=== PATIENT | female | born 1950 | race African-American/Black ===

== ENCOUNTER 2025-07-24 17:12 | Emergency (ER) | payer MEDICARE ==
[~2025-07-24 17:12] MED LIST: Iopamidol-370 76% 500 ML MDV (1 ML CHARGE) ONE
[2025-07-24 18:44] LABS: Actual Bicarbonate (HCO3v) 23.3 mEq/L (22-28); Base Excess -2.0 mEq/L (-2.0 to +3.0); Calcium, Ionized (venous) 1.12 mmol/L (1.16-1.32); Chloride (VBG) 104 mmol/L (98-106); Hematocrit-VBG 44 % (42.0-52.0); Hemoglobin (Hb) 14.9 g/dL (12.6-17.4); Potassium (VBG) 4.10 mmol/L (3.70-5.30); Sodium 142 mmol/L (133-146)
[2025-07-24 18:49] LABS: #Basophils 0.04 10x3/uL (0.0-0.2); #Eosinophils 0.06 10x3/uL (0.0-0.7); #Monocytes 0.33 10x3/uL (0.11-0.59); #Neutrophils 3.45 10x3/uL (1.40-6.50); %Basophils 0.8 % (0.0-1.0); %Eosinophils 1.2 % (0.0-10.0); %Lymphocytes 19.4 % (21.0-51.0); %Monocytes 6.8 % (0.0-10.0); %Neutrophils 71.4 % (42.0-75.0); Hematocrit 42.3 % (42.0-52.0); Hemoglobin 13.5 g/dL (14.0-18.0); Mean Corpuscular Hemoglobin 30.3 pg (27.0-31.0); Mean Corpuscular Volume 94.8 fL (78.0-98.0); Platelet Count 257 10x3/uL (130-400); Red Blood Cell (RBC) Count 4.46 mill/uL (4.70-6.10); White Blood Cell (WBC) Count 4.84 10x3/uL (4.8-10.8)
[2025-07-24 19:07] LABS: ALT (SGPT) 10 U/L (Less than 45); AST (SGOT) 22 U/L (11-34); Albumin 4.0 g/dL (3.1-4.5); Alkaline Phosphatase 71 U/L (40-110); Anion Gap 18 mmol/L (10-20); BUN (Urea Nitrogen) 18 mg/dL (8.4-25.7); Bilirubin, Total 0.3 mg/dL (0.3-1.2); Calc. Creatinine Clearance 0 mL/min (70-130); Calcium 9.1 mg/dL (7.8-10.44); Carbon Dioxide 21 mmol/L (23-31); Chloride 105 mmol/L (98-107); Globulin 3.9 g/dL (2.4-3.5); Glucose 112 mg/dL (83-110); Lipase 13 U/L (8-78); Potassium 3.8 mmol/L (3.5-5.1); Sodium 140 mmol/L (136-145)
[2025-07-24 19:34] LABS: CAUTI Indications for Culture Acute Hematuria; Glucose, Urine (Dipstick) Normal (Negative); Leukocyte 250 Leu/uL (Negative); Protein, Urine (Dipstick) Negative (Neg-Trace); RBC/HPF 0-3 HPF (0-3); Specific Gravity, Urine 1.016 (1.002-1.036)
[2025-07-24 19:35] LABS: Bacteria/HPF 1+ HPF (None Seen)
[2025-07-24 19:36] LABS: Urine Culture Reflex Yes Yes
[2025-07-24] MEDS ORDERED: Ondansetron PF 4 MG/2 ML Vial ONE (20:22)
[2025-07-24] MEDS ORDERED: cefTRIAXone (ROCEPHIN) 1 GM VIAL ONE (21:02)
== END 2025-07-24 22:00 | disposition home or self-care (01) ==
LOC: EDSEX 17:12 → ERS 17:12
DX: N39.0 Urinary tract infection, site not specified (principal); I10 Essential (primary) hypertension; Z55.6 Problems related to health literacy; Z79.899 Other long term (current) drug therapy
CPT/HCPCS: 70496; 70498; 71045; 80053; 81001; 82140; 82805; 82962; 83605; 83690; 84484; 85025; 87086; J0696; 36416; 87077; 87186; 96374; 96375; Q9967